=== PATIENT | female | born 1950 | race American Indian/Alaskan Native ===

== ENCOUNTER 2018-09-16 10:43 | Emergency (ER) | payer MEDICARE ==
[2018-09-16 11:12] VITALS: BP 122/81
[2018-09-16] MEDS ORDERED: BENADRYL PO ONE (11:14)
[2018-09-16] MEDS ORDERED: VERSED PO ONE (11:15)
--- NOTE | 2018-09-16 11:22 | Emergency Department Report ---
ED General Adult HPI - General Chief complaint: Pain General Stated complaint: DYSTONIA FLARE UP Time Seen by Provider: 09/16/18 11:05 Source: patient, EMS Mode of arrival: Stretcher Limitations: No Limitations - History of Present Illness Initial comments: Patient is a 67-year-old female past medical history of dystonia and anxiety who has a dystonia flareup. Agents flareup is severe she states that she is very anxious she took her clonazepam but she forgot to take a supplemental dose to break out of her anxiety attack. Patient states that she does have some cramping in her right arm she has no suicidal and no homicidal ideation. No shortness of breath no chest pain. Severity scale (0 -10): 5 - Related Data Allergies Allergy/AdvReac Type Severity Reaction Status Date / Time No Known Allergies Allergy Unverified 09/16/18 11:01 ED Review of Systems ROS: Stated complaint: DYSTONIA FLARE UP Other details as noted in HPI Constitutional: denies: chills, fever Eyes: denies: eye pain, eye discharge, vision change ENT: denies: ear pain, throat pain Respiratory: denies: cough, shortness of breath, wheezing Cardiovascular: denies: chest pain, palpitations Endocrine: no symptoms reported Gastrointestinal: denies: abdominal pain, nausea, diarrhea Genitourinary: denies: urgency, dysuria, discharge Musculoskeletal: as per HPI, myalgia. denies: back pain, joint swelling, arthralgia Skin: denies: rash, lesions Neurological: denies: headache, weakness, paresthesias Psychiatric: anxiety. denies: depression Hematological/Lymphatic: denies: easy bleeding, easy bruising ED Past Medical Hx - Past Medical History Previous Medical History?: Yes Hx Psychiatric Treatment: Yes (ANXIETY BIPOLAR) Additional medical history: DYSTONIA - Surgical History Past Surgical History?: No - Social History Smoking Status: Never Smoker Substance Use Type: None ED Physical Exam - General Limitations: No Limitations General appearance: alert, in no apparent distress - Head Head exam: Present: atraumatic, normocephalic - Eye Eye exam: Present: normal appearance - ENT ENT exam: Present: mucous membranes moist - Neck Neck exam: Present: normal inspection - Respiratory Respiratory exam: Present: normal lung sounds bilaterally. Absent: respiratory distress - Cardiovascular Cardiovascular Exam: Present: regular rate, normal rhythm. Absent: systolic murmur, diastolic murmur, rubs, gallop - GI/Abdominal GI/Abdominal exam: Present: soft, normal bowel sounds - Extremities Exam Extremities exam: Present: normal inspection - Back Exam Back exam: Present: normal inspection - Neurological Exam Neurological exam: Present: alert, oriented X3 - Psychiatric Psychiatric exam: Present: normal affect, anxious - Skin Skin exam: Present: warm, dry, intact, normal color. Absent: rash ED Course Vital Signs 09/16/18 09/16/18 11:06 11:12 Temperature 98.2 F 98.2 F Pulse Rate 95 H 95 H Respiratory 20 20 Rate Blood Pressure 122/81 Blood Pressure 122/81 [Left] O2 Sat by Pulse 97 100 Oximetry ED Medical Decision Making - Medical Decision Making Chief medical diagnosis: Dystonia flareup Differential diagnosis: Anxiety, medication reaction PATIENT 50 oral Benadryl and 1 mg Versed and will reevaluate patient after 2 hours patient is calm she has no muscle pain her vital signs are within the normal limits. Patient is okay with discharge. Additional vertebral discharge instructions were given. Critical care attestation.: If time is entered above; I have spent that time in minutes in the direct care of this critically ill patient, excluding procedure time. ED Disposition Clinical Impression: Anxiety, Dystonia Disposition: DC-01 TO HOME OR SELFCARE Is pt being admited?: No Does the pt Need Aspirin: No Condition: Stable Instructions: Anxiety (ED) Referrals: ELKE LAURA MD [Referring] - 3-5 Days
== END 2018-09-16 14:19 | disposition home or self-care (01) ==
LOC: ED 10:43
DX: F41.9 Anxiety disorder, unspecified (principal); G24.9 Dystonia, unspecified; F31.9 Bipolar disorder, unspecified; M79.601 Pain in right arm
CPT/HCPCS: 99283